=== PATIENT | male | born 1985 ===

== ENCOUNTER 2017-08-15 22:46 | Emergency (ER) | payer OTHER ==
[~2017-08-15 22:46] MED LIST: PREDNISONE 20MG20 MG PO
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
[2017-08-16 00:21] VITALS: BP 142/78
== END 2017-08-16 00:44 ==
LOC: ERH 22:46
DX: S01.01XA Laceration without foreign body of scalp, initial encounter (principal); Y00.XXXA Assault by blunt object, initial encounter; Y93.9 Activity, unspecified; Y92.410 Unspecified street and highway as the place of occurrence of the external cause
CPT/HCPCS: 90471; 90714; 96372; J1200